=== PATIENT | female | born 1945 | race Caucasian/White ===

== ENCOUNTER 2017-08-03 20:55 | Emergency (ER) | payer MEDICARE, BC ==
[~2017-08-03] VITALS: Ht 170.2 cm; Wt 85.9 kg
[~2017-08-03 20:55] MED LIST: AMLO2.5T PO; ASPI-1009 PO; ATOR20TA PO; CITA10SO6 PO; CYAN500T46 PO; GLIP5POW PO; GUAI120L55 PO; HCTZ25T PO; IRON18TA PO; MELA5TAB12 PO; METF500T4 PO; POTA10TA19 PO; RAMI10CA44 PO; VITA-175 PO
[2017-08-03 23:26] VITALS: BP 112/68
== END 2017-08-03 23:29 | disposition home or self-care (01) ==
LOC: ER 20:56
DX: S06.0X0A Concussion without loss of consciousness, initial encounter (principal); S70.02XA Contusion of left hip, initial encounter; T14.8XXA Other injury of unspecified body region, initial encounter; I10 Essential (primary) hypertension; E11.9 Type 2 diabetes mellitus without complications; Z98.890 Other specified postprocedural states; Z60.2 Problems related to living alone; Z79.82 Long term (current) use of aspirin; Z79.84 Long term (current) use of oral hypoglycemic drugs; W01.0XXA Fall on same level from slipping, tripping and stumbling without subsequent striking against object, initial encounter; Y93.89 Activity, other specified; Y92.89 Other specified places as the place of occurrence of the external cause; Y99.8 Other external cause status
CPT/HCPCS: 73502; 99284

== ENCOUNTER 2018-01-18 06:59 | Emergency (ER) | payer MEDICARE, BC ==
[~2018-01-18] VITALS: Ht 167.6 cm; Wt 82.7 kg
[~2018-01-18 06:59] MED LIST changes: +METF-436 PO; -METF500T4 PO
[2018-01-18] MEDS ORDERED: HYDROcodone/acetaminophen 5mg/325mg tablet PO ONE (07:35)
[2018-01-18 09:03] VITALS: BP 128/56
[2018-01-18] MEDS ORDERED: ACET-3068 PO (10:08)
== END 2018-01-18 10:31 | disposition home or self-care (01) ==
LOC: ER 06:59
DX: S00.03XA Contusion of scalp, initial encounter (principal); S20.229A Contusion of unspecified back wall of thorax, initial encounter; S09.90XA Unspecified injury of head, initial encounter; I10 Essential (primary) hypertension; E11.9 Type 2 diabetes mellitus without complications; M19.90 Unspecified osteoarthritis, unspecified site; Z86.73 Personal history of transient ischemic attack (TIA), and cerebral infarction without residual deficits; Z90.49 Acquired absence of other specified parts of digestive tract; Z98.890 Other specified postprocedural states; Z87.891 Personal history of nicotine dependence; Z88.0 Allergy status to penicillin; Z79.82 Long term (current) use of aspirin; Z79.899 Other long term (current) drug therapy; W01.198A Fall on same level from slipping, tripping and stumbling with subsequent striking against other object, initial encounter; Y93.89 Activity, other specified; Y92.89 Other specified places as the place of occurrence of the external cause; Y99.9 Unspecified external cause status
CPT/HCPCS: 70450; 72074; 99284

== ENCOUNTER 2019-02-18 14:45 | Inpatient (IN) | payer MEDICARE, BC ==
[~2019-02-18] VITALS: Ht 167.6 cm; Wt 80.5 kg
[~2019-02-18 14:45] MED LIST changes: -AMLO2.5T PO; +AMLO2.5T4 PO
[2019-02-18] MEDS ORDERED: normal saline 1000ml 1,000 ML IV ONE (15:03)
[2019-02-18] MEDS ORDERED: morphine 2 MG/ML inj. syringe IV ONE (15:05)
[2019-02-18 16:02] LABS: BASOPHILS # (AUTO) 0.1 X10'3 (0-0.2); BASOPHILS % (AUTO) 0.7 % (0-1); EOSINOPHILS # (AUTO) 0.3 X10'3 (0-0.9); EOSINOPHILS % (AUTO) 3.6 % (0-6); HEMATOCRIT 38.7 % (35.0-45.0); HEMOGLOBIN 13.1 g/dl (12.0-16.0); LYMPHOCYTES # (AUTO) 1.5 X10'3 (1.1-4.8); LYMPHOCYTES % (AUTO) 19.6 % (21-51); MEAN CORPUSCULAR HEMOGLOBIN 32.8 PG (27.0-31.0); MEAN CORPUSCULAR HGB CONC 33.9 g/dL (33.0-36.5); MEAN CORPUSCULAR VOLUME 96.6 FL (78-98); MEAN PLATELET VOLUME 9.1 FL (7.4-10.4); MONOCYTES # (AUTO) 0.6 X10'3 (0-0.9); MONOCYTES % (AUTO) 7.5 % (2-12); NEUTROPHILS # (AUTO) 5.3 X10'3 (1.8-7.7); NEUTROPHILS % (AUTO) 68.6 % (42-75); PLATELET COUNT 221 X10'3 (140-440); RED CELL DISTRIBUTION WIDTH 13.6 % (11.5-14.5); WHITE BLOOD COUNT 7.7 X10'3 (4.5-11.0)
[2019-02-18 16:17] LABS: PARTIAL THROMBOPLASTIN TIME 25 SECONDS (22-32)
[2019-02-18 16:18] LABS: ALANINE AMINOTRANSFERASE 28 U/L (12-78); ALBUMIN 3.6 G/DL (3.4-5.0); ALBUMIN/GLOBULIN RATIO 0.9 (1.1-1.5); ALKALINE PHOSPHATASE 92 IU/L (46-116); ANION GAP 13 (8-16); ASPARTATE AMINO TRANSFERASE 21 U/L (10-37); BILIRUBIN,TOTAL 0.3 MG/DL (0.1-1.0); BLOOD UREA NITROGEN 24 MG/DL (7-18); BUN/CREATININE RATIO 26.1 (6.6-38.0); CALCIUM 9.5 MG/DL (8.5-10.1); CHLORIDE 106 MMOL/L (99-107); CREATININE 0.92 MG/DL (0.40-0.90); GLUCOSE 160 MG/DL (70-104); POTASSIUM 3.5 MMOL/L (3.5-5.1); SODIUM 144 MMOL/L (135-145); TOTAL CARBON DIOXIDE 24.7 MMOL/L (24-32); TOTAL PROTEIN 7.4 G/DL (6.4-8.2); eGFR 60 ML/MIN
[2019-02-18 16:22] LABS: CREATINE KINASE 59 U/L (26-192); TROPONIN I < 0.04 NG/ML (0.0-0.05)
[2019-02-18] MEDS ORDERED: magnesium 4gm in 100ml NS 100 ML IV PRN (17:10)
[2019-02-18] MEDS ORDERED: magnesium 2GM in 50ml NS 50 ML IV PRN (17:10)
[2019-02-18] MEDS ORDERED: HYDROcodone/acetaminophen 5mg/325mg tablet PO PRN (17:10)
[2019-02-18] MEDS ORDERED: potassium CL 10mEq/100ml bag 100 ML IV PRN ×2 (17:10)
[2019-02-18] MEDS ORDERED: magnesium Cl slow-release 64mg tablet PO PRN (17:10)
[2019-02-18] MEDS ORDERED: magnesium hydroxide 30ml (MOM) UD suspension PO PRN (17:10)
[2019-02-18] MEDS ORDERED: diphenhydrAMINE 25mg capsule PO PRN (17:10)
[2019-02-18] MEDS ORDERED: acetaminophen 325mg tablet PO PRN ×2 (17:10)
[2019-02-18] MEDS: K and/or MAG REPLACEMENT MC SCH (17:10)
[2019-02-18] MEDS ORDERED: mag hydrox/Alum hydrox/simeth 30ml oral suspension PO PRN (17:10)
[2019-02-18] MEDS ORDERED: morphine 2 MG/ML inj. syringe IV PRN (17:10)
[2019-02-18] MEDS ORDERED: bisacodyl 10mg suppository rectal RC PRN (17:10)
[2019-02-18] MEDS ORDERED: potassium Cl 20 mEq SR tablet PO PRN ×2 (17:10)
[2019-02-18] MEDS ORDERED: morphine 4 MG/ML inj SYRINge IV ONE ×2 (17:25→20:05)
[2019-02-18] MEDS: normal saline 1000ml 1,000 ML IV SCH (17:52)
[2019-02-18 18:02] LABS: CLARITY,URINE SLIGHTLY CLOUDY (Clear); COLOR,URINE YELLOW (Yellow); GLUCOSE, URINE NEGATIVE (Neg); KETONES,URINE NEGATIVE (Neg); LEUKOCYTE ESTERASE ,URINE NEGATIVE (Neg); NITRITES, URINE NEGATIVE (Neg); OCCULT BLOOD,URINE NEGATIVE (Neg); PROTEIN,URINE TRACE mg/dl (Neg); UROBILINOGEN,URINE 0.2 E.U/dL (0.2-1.0)
[2019-02-18 18:08] LABS: UA COLLECTION TYPE FOLEY CATH
[2019-02-18] MEDS ORDERED: FURO-150 PO (18:11)
[2019-02-18 18:13] LABS: BACTERIA,URINE 4+ /HPF (Neg); RBC,URINE 0-2 /HPF (0-2); SQUAMOUS EPITHELIAL CELL,UR NONE SEEN /LPF (FEW)
[2019-02-18] MEDS ORDERED: SENN-250 PO (18:14)
[2019-02-18] MEDS ORDERED: INSU300I SQ (18:14)
[2019-02-18] MEDS ORDERED: INSU100V11 SQ (18:14)
[2019-02-18] MEDS ORDERED: LOSA100T57 PO (18:23)
[2019-02-18 20:00] VITALS: BP 154/68
[2019-02-18] MEDS ORDERED: temazepam 15mg capsule PO PRN (21:00)
[2019-02-18] MEDS ORDERED: ringers solution, lacted 1,000 ML IV ONE (21:05)
[2019-02-18] MEDS ORDERED: CefTRIAXone 2gm/D5W 50ml 50 ML IV ONE (21:30)
[2019-02-18] MEDS: HYDROcodone/acetaminophen 10/325mg tab PO PRN (22:44)
--- NOTE | 2019-02-19 02:51 | NUR ---
Reviewed and agree with SRN assessment.
[2019-02-19] MEDS: HYDROcodone/acetaminophen 10/325mg tab PO PRN ×4 (03:35→16:27)
[2019-02-19] MEDS: normal saline 1000ml 1,000 ML IV SCH ×2 (03:36→16:28)
[2019-02-19] MEDS ORDERED: famotidine 20mg tablet PO ONE (06:00)
--- NOTE | 2019-02-19 06:08 | NUR ---
Problems reprioritized. Patient report given, questions answered & plan of care reviewed with MARIA DOLORES Walker.
[2019-02-19 06:10] VITALS: BP 170/68
--- NOTE | 2019-02-19 06:24 | NUR ---
I have received patient report from Caitlin Zhang and Sonia KOEHLER
[2019-02-19 06:26] LABS: BASOPHILS % (AUTO) 0.3 % (0-1); EOSINOPHILS # (AUTO) 0.3 X10'3 (0-0.9); HEMATOCRIT 35.2 % (35.0-45.0); HEMOGLOBIN 12.1 g/dl (12.0-16.0); LYMPHOCYTES # (AUTO) 1.3 X10'3 (1.1-4.8); MEAN CORPUSCULAR HEMOGLOBIN 33.4 PG (27.0-31.0); MEAN CORPUSCULAR HGB CONC 34.3 g/dL (33.0-36.5); MEAN CORPUSCULAR VOLUME 97.5 FL (78-98); MEAN PLATELET VOLUME 8.7 FL (7.4-10.4); MONOCYTES # (AUTO) 0.8 X10'3 (0-0.9); MONOCYTES % (AUTO) 7.6 % (2-12); NEUTROPHILS # (AUTO) 8.2 X10'3 (1.8-7.7); NEUTROPHILS % (AUTO) 77.1 % (42-75); PLATELET COUNT 185 X10'3 (140-440); RED BLOOD COUNT 3.61 X10'6 (4.20-5.60); RED CELL DISTRIBUTION WIDTH 13.3 % (11.5-14.5); WHITE BLOOD COUNT 10.7 X10'3 (4.5-11.0)
[2019-02-19 06:40] LABS: ALANINE AMINOTRANSFERASE 22 U/L (12-78); ALBUMIN 3.2 G/DL (3.4-5.0); ALBUMIN/GLOBULIN RATIO 0.9 (1.1-1.5); ALKALINE PHOSPHATASE 75 IU/L (46-116); ANION GAP 9 (8-16); ASPARTATE AMINO TRANSFERASE 21 U/L (10-37); BILIRUBIN,TOTAL 0.5 MG/DL (0.1-1.0); BLOOD UREA NITROGEN 20 MG/DL (7-18); BUN/CREATININE RATIO 26.7 (6.6-38.0); CALCIUM 8.4 MG/DL (8.5-10.1); CHLORIDE 107 MMOL/L (99-107); CHOL/HDL RATIO 2.6 (0.00-4.99); CHOLESTEROL 131 MG/DL (0-200); CREATININE 0.75 MG/DL (0.40-0.90); GLUCOSE 128 MG/DL (70-104); HDL CHOLESTEROL 50 MG/DL (35-60); LDL CHOLESTEROL 68 MG/DL (50-100); MAGNESIUM 1.2 MG/DL (1.5-2.4); PHOSPHORUS 2.9 MG/DL (2.3-4.5); POTASSIUM 3.2 MMOL/L (3.5-5.1); SODIUM 142 MMOL/L (135-145); TOTAL CARBON DIOXIDE 26.1 MMOL/L (24-32); TOTAL PROTEIN 6.6 G/DL (6.4-8.2); TRIGLYCERIDES 101 MG/DL (20-135); eGFR 76 ML/MIN
[2019-02-19] MEDS ORDERED: POTASSIUM BICARB 20meq eff tab 20 MEQ TABLET.EFF PO PRN (07:08)
[2019-02-19] MEDS: CefTRIAXone/D5W-Rocephin 1gm 50 ML IV SCH (07:38)
[2019-02-19] MEDS: K and/or MAG REPLACEMENT MC SCH (08:00)
[2019-02-19] MEDS: POTASSIUM BICARB 20meq eff tab 20 MEQ TABLET.EFF PO PRN ×3 (08:28→16:27)
[2019-02-19 10:00] VITALS: BP 145/56
[2019-02-19] MEDS ORDERED: sennosides/docusate sodium tablet PO PRN (10:55)
[2019-02-19] MEDS: citalopram 20mg tablet PO SCH (11:38)
[2019-02-19] MEDS: lactobacillus rhamnosus 10,000 MMU CELLS/CAPSULE PO SCH ×2 (11:38→20:47)
[2019-02-19] MEDS: losartan 50mg tablet PO SCH (11:39)
[2019-02-19] MEDS: vitamin B comp w/Vit. C tab 1 TAB TABLET PO SCH (11:39)
[2019-02-19] MEDS: heparin, porcine 5000 units/ml vial SQ SCH ×2 (11:57→20:48)
[2019-02-19 18:00] VITALS: BP 122/65
--- NOTE | 2019-02-19 18:00 | NUR ---
Patient in room ORTHO 4009. I have received report from MARIA DOLORES Walker and had the opportunity to ask questions and assume patient care.
--- NOTE | 2019-02-19 18:45 | NUR ---
Patient report given to Tonja WHITETN
[2019-02-19] MEDS: atorvastatin 20mg tablet PO SCH (20:48)
[2019-02-19] MEDS: Melatonin 3mg tablet PO SCH (20:48)
[2019-02-19] MEDS: morphine 2 MG/ML inj. syringe IV PRN (20:49)
[2019-02-19 22:00] VITALS: BP 175/67
[2019-02-20] VITALS (15 sets, daily range): BP systolic 133–189; BP diastolic 62–103
--- NOTE | 2019-02-20 02:54 | NUR ---
Pt is experiencing elevated BP, took it on bilateral upper extremities on the V/S machines, RN took BP manually twice: BP 210/105, 89, 2L on N/C. Called hospitalist, received orders
[2019-02-20] MEDS ORDERED: nitroGLYCERIN 1gm ointment UD TP ONE (02:55)
[2019-02-20] MEDS ORDERED: amLODIPine 5mg tablet PO ONE (02:55)
--- NOTE | 2019-02-20 03:47 | NUR ---
Patient is confused and wanting to talk to a doctor at this time, since she is not believing the nursing staff about what is going on regarding her hospital stay. I attempted to reach the log operations coordinator Hospitalist but he is unavailable to speak to the patient at this time. I did try to re orient patient regarding the hospital stay and what her plan of care was in regards to the planned surgery at 0730. She was unable to be re orientated at this time.
--- NOTE | 2019-02-20 05:21 | NUR ---
Patient pulled iv out and is still confused and angry; I attempted to call the pt's daughter listed as a bus person but both phone numbers did not work. So I called the next bus person, Jackie and left a message for her to call the hospital.
--- NOTE | 2019-02-20 06:00 | NUR ---
Problems reprioritized. Patient report given, questions answered & plan of care reviewed with MARIA DOLORES Hines.
--- NOTE | 2019-02-20 06:12 | NUR ---
RECIEVED REPORT FROM MARIA DOLORES MONTES
[2019-02-20] MEDS ORDERED: cefazolin/dext.iso 2gm/50ml 50 ML IV ONE (06:20)
[2019-02-20] MEDS ORDERED: tranexamic acid 100mg/ml inj. IV ONE (06:20)
[2019-02-20] MEDS ORDERED: tranexamic acid inj. 1,000 MG in normal saline 100ml IV soln 100 ML IV ONE (06:30)
[2019-02-20] MEDS ORDERED: vancomycin 1,000mg inj ONE (06:32)
[2019-02-20] MEDS: HYDROcodone/acetaminophen 10/325mg tab PO PRN ×3 (06:38→22:01)
[2019-02-20] MEDS: normal saline 1000ml 1,000 ML IV SCH ×4 (06:51→22:04)
[2019-02-20] MEDS: aspirin 81mg tablet.DR PO SCH (07:00)
[2019-02-20] MEDS: citalopram 20mg tablet PO SCH (07:00)
[2019-02-20] MEDS: heparin, porcine 5000 units/ml vial SQ SCH ×2 (07:00→20:37)
[2019-02-20] MEDS: losartan 50mg tablet PO SCH (07:00)
[2019-02-20] MEDS: K and/or MAG REPLACEMENT MC SCH (07:00)
[2019-02-20] MEDS: vitamin B comp w/Vit. C tab 1 TAB TABLET PO SCH (07:00)
[2019-02-20] MEDS: lactobacillus rhamnosus 10,000 MMU CELLS/CAPSULE PO SCH ×2 (07:00→20:37)
--- NOTE | 2019-02-20 07:00 | NUR ---
pt is being wheeled down to or now
[2019-02-20] MEDS ORDERED: sevoflurane 250ml liquid IH ONE (07:14)
[2019-02-20] MEDS ORDERED: propofol 10mg/ml 20ml vial IV ONE (07:14)
[2019-02-20] MEDS ORDERED: fentaNYL/PF 50MCG/1 ML 2ML syringe ONE ×2 (07:16→07:50)
[2019-02-20] MEDS ORDERED: midazolam 2 mg/2 ml injection ONE (07:17)
[2019-02-20] MEDS ORDERED: LIDOcaine 2% (20mg/ml) 5ml vial ONE (07:30)
[2019-02-20] MEDS ORDERED: dexamethasone sod phosphate 4mg/ml inj. ONE ×2 (07:37→07:38)
[2019-02-20] MEDS ORDERED: ondansetron/PF 4mg/2ml inj ONE (07:38)
[2019-02-20] MEDS ORDERED: ringers solution, lacted 1,000 ML IV SCH (07:56)
[2019-02-20] MEDS ORDERED: labetalol 20mg/4ml (5mg/ml) syringe IV PRN (08:00)
[2019-02-20] MEDS ORDERED: hydrALAZINE 20mg/ml inj. IV PRN (08:00)
[2019-02-20] MEDS ORDERED: fentaNYL/PF 50MCG/1 ML 2ML syringe IV PRN ×2 (08:00)
[2019-02-20] MEDS ORDERED: morphine 4 MG/ML inj SYRINge IV PRN ×2 (08:00)
[2019-02-20] MEDS ORDERED: ondansetron/PF 4mg/2ml inj IV PRN (08:00)
[2019-02-20] MEDS ORDERED: ePHEDrine 50MG/ML INJ. ONE (08:23)
--- NOTE | 2019-02-20 08:45 | NUR ---
Received from OR via ORTHO BED, accompanied by Anesthesiologist DR. FLOYD and report given by Anesthesiolgist. PT ARRIVED WITH O2 VIA MASK AT 10L. GROGGY BUT RESPONDS TO COMMANDS. [place]CKAY WITH [employer] CSM. PULSES AND [employer] POLICE OFFICER WNL. SHANIQUE DRESSING IN PLACE WITH HIP WRAP AND PWD PACK. SCD IN PLACE. FC WITH CLEAR YELLOW URINE NOTED
--- NOTE | 2019-02-20 09:12 | NUR ---
RECEIVED REPORT FROM MARIA DOLORES MARTINO IN [facility]
--- NOTE | 2019-02-20 09:35 | NUR ---
Report called to receiving nurse BECKY WHITTEN. Transferred via ORHTO BED TO ROOM 4009B. Belongings RING, TEETH, GLASSES AND CELLPHONE IN PTS CHART LEFT AT DESK. Special Issues communicated to receiving nurse. VSS ON 2L NC
[2019-02-20] MEDS: CefTRIAXone/D5W-Rocephin 1gm 50 ML IV SCH (09:50)
[2019-02-20 11:02] LABS: HEMOGLOBIN 11.3 g/dl (12.0-16.0); LYMPHOCYTES # (AUTO) 0.4 X10'3 (1.1-4.8); MEAN CORPUSCULAR HEMOGLOBIN 32.3 PG (27.0-31.0); RED BLOOD COUNT 3.51 X10'6 (4.20-5.60); RED CELL DISTRIBUTION WIDTH 13.4 % (11.5-14.5); WHITE BLOOD COUNT 12.8 X10'3 (4.5-11.0)
[2019-02-20 11:04] LABS: BASOPHILS % (AUTO) 0.3 % (0-1); EOSINOPHILS % (AUTO) 0.2 % (0-6); HEMATOCRIT 34.6 % (35.0-45.0); LYMPHOCYTES % (AUTO) 3.1 % (21-51); MEAN CORPUSCULAR HGB CONC 32.8 g/dL (33.0-36.5); MEAN CORPUSCULAR VOLUME 98.4 FL (78-98); MONOCYTES # (AUTO) 0.4 X10'3 (0-0.9); MONOCYTES % (AUTO) 3.2 % (2-12); NEUTROPHILS # (AUTO) 11.9 X10'3 (1.8-7.7); NEUTROPHILS % (AUTO) 93.2 % (42-75); PLATELET COUNT 184 X10'3 (140-440)
[2019-02-20 11:14] LABS: ALANINE AMINOTRANSFERASE 20 U/L (12-78); ALBUMIN 2.8 G/DL (3.4-5.0); ALBUMIN/GLOBULIN RATIO 0.8 (1.1-1.5); ALKALINE PHOSPHATASE 76 IU/L (46-116); ANION GAP 11 (8-16); ASPARTATE AMINO TRANSFERASE 26 U/L (10-37); BILIRUBIN,TOTAL 0.5 MG/DL (0.1-1.0); BLOOD UREA NITROGEN 19 MG/DL (7-18); BUN/CREATININE RATIO 23.2 (6.6-38.0); CALCIUM 7.6 MG/DL (8.5-10.1); CHLORIDE 105 MMOL/L (99-107); CREATININE 0.82 MG/DL (0.40-0.90); GLUCOSE 222 MG/DL (70-104); MAGNESIUM 2.1 MG/DL (1.5-2.4); PHOSPHORUS 2.8 MG/DL (2.3-4.5); POTASSIUM 3.7 MMOL/L (3.5-5.1); SODIUM 139 MMOL/L (135-145); TOTAL CARBON DIOXIDE 22.7 MMOL/L (24-32); TOTAL PROTEIN 6.4 G/DL (6.4-8.2); eGFR 68 ML/MIN
--- NOTE | 2019-02-20 11:16 | NUR ---
RECOVERY NURSE TOLD ME THAT THEY PLACED A HIP WRAP AND POWDER PACK ON PT AND THAT THE HIP WRAP AND POWDER PACK WAS NOT ORDERED BY DOC, CONTINUE TO MONITOR PT
[2019-02-20] MEDS: ondansetron/PF 4mg/2ml inj IV PRN (13:46)
[2019-02-20] MEDS: morphine 2 MG/ML inj. syringe IV PRN (13:53)
--- NOTE | 2019-02-20 14:00 | NUR ---
PT TELLS ME THAT FOR HER DM SHE TAKES PO MEDS AND IS DIET CONTROLLED, LOOKING A PT MED REC THE HOSPITALIST HELD HER BG MEDICATION, AND HER A1C IS 6.6 THEREFORE CONTINUE TO MONITOR PT BG AT THIS TIME
[2019-02-20] MEDS: cefazolin/dext.iso 2gm/50ml 50 ML IV SCH (15:38)
--- NOTE | 2019-02-20 16:00 | NUR ---
SENT A PAGE TO HOSPITALIST ABOUT PT ELEVATED BG, NO NEW ORDERS AT THIS TIME, CONTINUE TO MONITOR
[2019-02-20] MEDS ORDERED: glucagon, human recombinant 1mg kit SUBCUT PRN (17:35)
[2019-02-20] MEDS ORDERED: dextrose ORAL solution 15 GM/59 ML bottle PO PRN ×2 (17:35)
[2019-02-20] MEDS ORDERED: MESSAGE TO PHARMACY PO ONE (17:35)
[2019-02-20] MEDS ORDERED: dextrose 50%-water 50ml dispensing syringe IV PRN ×2 (17:35)
--- NOTE | 2019-02-20 17:38 | NUR ---
PT JUST PLACED ON HYPER/HYPOGLYCEMIC PROTOCAL FOR HER ELEVATED BG, PHARMACY WILL NEED TO SEND INSULIN UP TO FLOOR, CONTINUE TO MONITOR
--- NOTE | 2019-02-20 18:24 | NUR ---
GAVE REPORT TO MARIA DOLORES CASTREJON
[2019-02-20] MEDS: insulin Lispro (HumaLOG) vial - multi-dose SQ SCH ×2 (19:44→21:55)
[2019-02-20] MEDS: Melatonin 3mg tablet PO SCH (20:37)
[2019-02-20] MEDS: atorvastatin 20mg tablet PO SCH (20:37)
[2019-02-20] MEDS ORDERED: insulin glargine (Lantus) pen - multi-dose SQ SCH (21:00)
[2019-02-21] MEDS: ondansetron/PF 4mg/2ml inj IV PRN (00:44)
[2019-02-21] MEDS: cefazolin/dext.iso 2gm/50ml 50 ML IV SCH (00:54)
[2019-02-21 02:00] VITALS: BP 156/78
[2019-02-21] MEDS: HYDROcodone/acetaminophen 10/325mg tab PO PRN ×2 (04:07→08:18)
[2019-02-21 06:56] LABS: BASOPHILS % (AUTO) 0.1 % (0-1); EOSINOPHILS % (AUTO) 0.1 % (0-6); HEMATOCRIT 32.1 % (35.0-45.0); HEMOGLOBIN 10.8 g/dl (12.0-16.0); LYMPHOCYTES # (AUTO) 0.8 X10'3 (1.1-4.8); LYMPHOCYTES % (AUTO) 6.8 % (21-51); MEAN CORPUSCULAR HEMOGLOBIN 32.7 PG (27.0-31.0); MEAN CORPUSCULAR HGB CONC 33.6 g/dL (33.0-36.5); MEAN CORPUSCULAR VOLUME 97.3 FL (78-98); MEAN PLATELET VOLUME 8.9 FL (7.4-10.4); MONOCYTES # (AUTO) 0.9 X10'3 (0-0.9); MONOCYTES % (AUTO) 7.9 % (2-12); NEUTROPHILS # (AUTO) 9.9 X10'3 (1.8-7.7); NEUTROPHILS % (AUTO) 85.1 % (42-75); PLATELET COUNT 195 X10'3 (140-440); RED CELL DISTRIBUTION WIDTH 13.3 % (11.5-14.5); WHITE BLOOD COUNT 11.6 X10'3 (4.5-11.0)
[2019-02-21 07:05] VITALS: BP 143/71
[2019-02-21 07:07] LABS: ALANINE AMINOTRANSFERASE 19 U/L (12-78); ALBUMIN 2.8 G/DL (3.4-5.0); ALBUMIN/GLOBULIN RATIO 0.7 (1.1-1.5); ALKALINE PHOSPHATASE 78 IU/L (46-116); ANION GAP 10 (8-16); ASPARTATE AMINO TRANSFERASE 25 U/L (10-37); BILIRUBIN,TOTAL 0.4 MG/DL (0.1-1.0); BLOOD UREA NITROGEN 15 MG/DL (7-18); BUN/CREATININE RATIO 15.3 (6.6-38.0); CALCIUM 8.6 MG/DL (8.5-10.1); CHLORIDE 107 MMOL/L (99-107); CREATININE 0.98 MG/DL (0.40-0.90); GLUCOSE 215 MG/DL (70-104); MAGNESIUM 2.4 MG/DL (1.5-2.4); PHOSPHORUS 1.7 MG/DL (2.3-4.5); POTASSIUM 3.7 MMOL/L (3.5-5.1); SODIUM 141 MMOL/L (135-145); TOTAL CARBON DIOXIDE 24.1 MMOL/L (24-32); TOTAL PROTEIN 6.8 G/DL (6.4-8.2); eGFR 55 ML/MIN
[2019-02-21] MEDS ORDERED: furosemide 20MG tablet PO SCH (08:00)
[2019-02-21] MEDS: K and/or MAG REPLACEMENT MC SCH (08:00)
[2019-02-21] MEDS: losartan 50mg tablet PO SCH (08:15)
[2019-02-21] MEDS: CefTRIAXone/D5W-Rocephin 1gm 50 ML IV SCH (08:15)
[2019-02-21] MEDS: heparin, porcine 5000 units/ml vial SQ SCH (08:15)
[2019-02-21] MEDS: citalopram 20mg tablet PO SCH (08:15)
[2019-02-21] MEDS: aspirin 81mg tablet.DR PO SCH (08:15)
[2019-02-21] MEDS: lactobacillus rhamnosus 10,000 MMU CELLS/CAPSULE PO SCH (08:15)
[2019-02-21] MEDS: vitamin B comp w/Vit. C tab 1 TAB TABLET PO SCH (08:15)
[2019-02-21 10:57] VITALS: BP 146/55
[2019-02-21] MEDS: normal saline 1000ml 1,000 ML IV SCH (14:53)
== END 2019-02-21 15:40 | DRG 470 ==
LOC: ER 14:46 → ED HOLD 17:06 → ORTHO 4S 19:47
PROVIDERS: ADMIT Family Medicine; ATTEND Family Medicine
PROC: 0SRS019 Replacement of Left Hip Joint, Femoral Surface with Metal Synthetic Substitute, Cemented, Open Approach (ICD-10-PCS; principal; 2019-02-18)
DX: S72.012A Unspecified intracapsular fracture of left femur, initial encounter for closed fracture (principal); N30.00 Acute cystitis without hematuria; E11.9 Type 2 diabetes mellitus without complications; E78.5 Hyperlipidemia, unspecified; I10 Essential (primary) hypertension; E87.6 Hypokalemia; W18.39XA Other fall on same level, initial encounter; Z66 Do not resuscitate; Z90.49 Acquired absence of other specified parts of digestive tract; Z87.891 Personal history of nicotine dependence; Z86.73 Personal history of transient ischemic attack (TIA), and cerebral infarction without residual deficits; Z83.3 Family history of diabetes mellitus; Z79.82 Long term (current) use of aspirin; Z17.1 Estrogen receptor negative status [ER-]; Y93.89 Activity, other specified; Y92.89 Other specified places as the place of occurrence of the external cause; Y99.8 Other external cause status; Z79.899 Other long term (current) drug therapy
CPT/HCPCS: 36415; 71045; 72170; 73502; 80053; 80061; 81001; 82550; 82948; 83036; 83735; 84100; 84484; 85025; 85610; 85730; 86885; 86900; 86901; 87077; 87081; 87088; 87186; 93005; 93306; 96361; 96374; 97116; 97162; 97530; 99285; A4618; A6454; A7000; A9272; C1713; C1776; G0378; J0696; J1100; J1644; J1815; J2001; J2250; J2270; J2405; J2704; J3010; J3370; J3475; J7030; J7120

== ENCOUNTER 2019-06-28 13:56 | Emergency (ER) | payer MEDICARE, BC ==
[~2019-06-28 13:56] MED LIST changes: -AMLO2.5T4 PO; -CYAN500T46 PO; +FURO-150 PO; -GLIP5POW PO; -GUAI120L55 PO; -HCTZ25T PO; +INSU100V11 SQ; +INSU300I SQ; -IRON18TA PO; +LOSA100T57 PO; -RAMI10CA44 PO; +SENN-250 PO
[2019-06-28 13:58] VITALS: BP 184/80
[2019-06-28] MEDS ORDERED: ONDA4TAB6 PO (14:50)
[2019-06-28] MEDS ORDERED: HYDR-3965 PO (14:50)
[2019-06-28] MEDS ORDERED: HYDROcodone/acetaminophen 10/325mg tab PO ONE (15:10)
[2019-06-28] MEDS ORDERED: ondansetron 4mg rapidly disintigrating tab PO ONE (15:10)
== END 2019-06-28 15:29 | disposition home or self-care (01) ==
LOC: ER 13:56
DX: S32.89XA Fracture of other parts of pelvis, initial encounter for closed fracture (principal); I10 Essential (primary) hypertension; E11.9 Type 2 diabetes mellitus without complications; F32.9 Major depressive disorder, single episode, unspecified; M25.552 Pain in left hip; M19.90 Unspecified osteoarthritis, unspecified site; Z90.49 Acquired absence of other specified parts of digestive tract; Z98.890 Other specified postprocedural states; Z60.2 Problems related to living alone; Z88.0 Allergy status to penicillin; Z88.8 Allergy status to other drugs, medicaments and biological substances; Z86.73 Personal history of transient ischemic attack (TIA), and cerebral infarction without residual deficits; Z79.4 Long term (current) use of insulin; Z79.82 Long term (current) use of aspirin; Z79.899 Other long term (current) drug therapy; W18.30XA Fall on same level, unspecified, initial encounter; Y93.01 Activity, walking, marching and hiking; Y92.89 Other specified places as the place of occurrence of the external cause; Y99.8 Other external cause status
CPT/HCPCS: 72170; 73502; 99284

== ENCOUNTER 2019-07-03 12:50 | Emergency (ER) | payer MEDICARE, BC ==
[~2019-07-03] VITALS: Ht 167.6 cm; Wt 82.3 kg
[~2019-07-03 12:50] MED LIST changes: +HYDR-3965 PO; +ONDA4TAB6 PO
[2019-07-03] MEDS ORDERED: HYDROcodone/acetaminophen 10/325mg tab PO ONE (13:45)
[2019-07-03] MEDS ORDERED: HYDR-4353 PO (15:12)
[2019-07-03] MEDS ORDERED: POLY17PO10 PO (15:12)
[2019-07-03] MEDS ORDERED: DOCU100C40 PO (15:12)
[2019-07-03 15:34] VITALS: BP 194/72
== END 2019-07-03 15:25 | disposition home or self-care (01) ==
LOC: ER 12:50
DX: S32.89XD Fracture of other parts of pelvis, subsequent encounter for fracture with routine healing (principal); I10 Essential (primary) hypertension; E11.9 Type 2 diabetes mellitus without complications; M19.90 Unspecified osteoarthritis, unspecified site; Z90.49 Acquired absence of other specified parts of digestive tract; Z98.890 Other specified postprocedural states; Z86.73 Personal history of transient ischemic attack (TIA), and cerebral infarction without residual deficits; Z88.0 Allergy status to penicillin; Z79.82 Long term (current) use of aspirin; Z79.899 Other long term (current) drug therapy; Z79.4 Long term (current) use of insulin; W18.30XD Fall on same level, unspecified, subsequent encounter
CPT/HCPCS: 99284

== ENCOUNTER 2019-07-05 14:38 | Emergency (ER) | payer MEDICARE, BC ==
[~2019-07-05] VITALS: Ht 167.6 cm; Wt 73.2 kg
[~2019-07-05 14:38] MED LIST changes: +DOCU100C40 PO; +HYDR-4353 PO; +POLY17PO10 PO
--- NOTE | 2019-07-05 15:31 | NUR ---
FAMILY AND FRIENDS AT BEDSIDE VISITING. PT IN [employer]
[2019-07-05] MEDS ORDERED: docusate sod 100mg capsule PO STA (15:39)
[2019-07-05] MEDS ORDERED: polyethylene glycol 3350 17gm powd pack PO STA (15:39)
[2019-07-05 16:15] VITALS: BP 173/103
--- NOTE | 2019-07-05 16:45 | NUR ---
Sugar and Backing Soda enema given as ordered. Pt tolerated well. Pt had a large amount of immediate return of liquid with brown tinge. Pt reports she is attempting to hold it in as long as possible. CARMELINA Preston aware.
--- NOTE | 2019-07-05 16:46 | NUR ---
Pt noted to have significant amount of ecchymosis on the left buttock, perineal area and posterior aspect of the left elbow from her fall on 06/30/19
[2019-07-05] MEDS ORDERED: GLYC-23 RC (17:29)
== END 2019-07-05 18:21 | disposition home or self-care (01) ==
LOC: ER 14:39
DX: K59.00 Constipation, unspecified (principal); R14.0 Abdominal distension (gaseous); I10 Essential (primary) hypertension; E11.9 Type 2 diabetes mellitus without complications; F32.9 Major depressive disorder, single episode, unspecified; Z86.73 Personal history of transient ischemic attack (TIA), and cerebral infarction without residual deficits; Z90.49 Acquired absence of other specified parts of digestive tract; Z98.890 Other specified postprocedural states; Z60.2 Problems related to living alone; Z79.82 Long term (current) use of aspirin; Z79.4 Long term (current) use of insulin; Z79.899 Other long term (current) drug therapy
CPT/HCPCS: 99284

== ENCOUNTER 2019-07-10 14:17 | Emergency (ER) | payer MEDICARE, BC ==
[~2019-07-10] VITALS: Ht 167.6 cm; Wt 72.7 kg
[~2019-07-10 14:17] MED LIST changes: +GLYC-23 RC; -POLY17PO10 PO
[2019-07-10] MEDS ORDERED: normal saline 1000ml 1,000 ML IV ONE (14:39)
[2019-07-10] MEDS ORDERED: normal saline 1000ML IV soln IVB ONE (14:40)
[2019-07-10 15:02] LABS: BASOPHILS # (AUTO) 0.1 X10'3 (0-0.2); BASOPHILS % (AUTO) 0.5 % (0-1); EOSINOPHILS # (AUTO) 0.2 X10'3 (0-0.9); EOSINOPHILS % (AUTO) 1.5 % (0-6); HEMATOCRIT 32.3 % (35.0-45.0); HEMOGLOBIN 11.1 g/dl (12.0-16.0); LYMPHOCYTES % (AUTO) 9.3 % (21-51); MEAN CORPUSCULAR HEMOGLOBIN 33.9 PG (27.0-31.0); MEAN CORPUSCULAR HGB CONC 34.2 g/dL (33.0-36.5); MEAN CORPUSCULAR VOLUME 99.1 FL (78-98); MEAN PLATELET VOLUME 7.6 FL (7.4-10.4); MONOCYTES # (AUTO) 0.6 X10'3 (0-0.9); MONOCYTES % (AUTO) 5.9 % (2-12); NEUTROPHILS # (AUTO) 8.8 X10'3 (1.8-7.7); NEUTROPHILS % (AUTO) 82.8 % (42-75); PLATELET COUNT 483 X10'3 (140-440); RED BLOOD COUNT 3.26 X10'6 (4.20-5.60); RED CELL DISTRIBUTION WIDTH 14.4 % (11.5-14.5); WHITE BLOOD COUNT 10.6 X10'3 (4.5-11.0)
[2019-07-10 15:16] LABS: ALANINE AMINOTRANSFERASE 30 U/L (12-78); ALBUMIN 3.4 G/DL (3.4-5.0); ALBUMIN/GLOBULIN RATIO 0.9 (1.1-1.5); ALKALINE PHOSPHATASE 177 IU/L (46-116); ANION GAP 16 (8-16); ASPARTATE AMINO TRANSFERASE 32 U/L (10-37); BILIRUBIN,TOTAL 0.7 MG/DL (0.1-1.0); BLOOD UREA NITROGEN 23 MG/DL (7-18); BUN/CREATININE RATIO 27.7 (6.6-38.0); CHLORIDE 106 MMOL/L (99-107); CREATININE 0.83 MG/DL (0.40-0.90); GLUCOSE 123 MG/DL (70-104); POTASSIUM 3.5 MMOL/L (3.5-5.1); SODIUM 142 MMOL/L (135-145); TOTAL CARBON DIOXIDE 19.8 MMOL/L (24-32); eGFR 67 ML/MIN
[2019-07-10] MEDS ORDERED: DIPH-186 PO (15:35)
[2019-07-10] MEDS ORDERED: diphenoxylate/atropine tablet (Lomotil) PO ONE (15:35)
[2019-07-10 15:42] VITALS: BP 178/69
[2019-07-10 15:57] LABS: CLARITY,URINE CLOUDY (Clear); COLOR,URINE YELLOW (Yellow); GLUCOSE, URINE NEGATIVE (Neg); KETONES,URINE 40 mg/dl (Neg); LEUKOCYTE ESTERASE ,URINE NEGATIVE (Neg); NITRITES, URINE POSITIVE (Neg); OCCULT BLOOD,URINE NEGATIVE (Neg); PH,URINE 5.5 (4.8-8.0); PROTEIN,URINE 30 mg/dl (Neg); UROBILINOGEN,URINE 0.2 E.U/dL (0.2-1.0)
[2019-07-10 15:58] LABS: UA COLLECTION TYPE FOLEY CATH
[2019-07-10 16:03] LABS: BACTERIA,URINE 4+ /HPF (Neg); MUCUS STRANDS NONE SEEN /LPF (Neg); RBC,URINE 0-2 /HPF (0-2); SQUAMOUS EPITHELIAL CELL,UR NONE SEEN /LPF (FEW); WBC,URINE 0-4 /HPF (0-4)
== END 2019-07-10 16:22 | disposition home or self-care (01) ==
LOC: ER 14:17
DX: R19.7 Diarrhea, unspecified (principal); I10 Essential (primary) hypertension; E11.9 Type 2 diabetes mellitus without complications; M19.90 Unspecified osteoarthritis, unspecified site; Z86.73 Personal history of transient ischemic attack (TIA), and cerebral infarction without residual deficits; Z90.49 Acquired absence of other specified parts of digestive tract; Z98.890 Other specified postprocedural states; Z88.0 Allergy status to penicillin; Z79.82 Long term (current) use of aspirin; Z79.899 Other long term (current) drug therapy; Z79.4 Long term (current) use of insulin
CPT/HCPCS: 36415; 80053; 81001; 85025; 87077; 87088; 87186; 99284; J7030

== ENCOUNTER 2019-09-01 09:49 | Emergency (ER) | payer MEDICARE, BC ==
[~2019-09-01] VITALS: Ht 167.6 cm; Wt 61.4 kg
[~2019-09-01 09:49] MED LIST changes: +DIPH-186 PO; -HYDR-3965 PO; -HYDR-4353 PO
[2019-09-01 11:40] VITALS: BP 178/82
== END 2019-09-01 12:04 | disposition home or self-care (01) ==
LOC: ER 09:49
DX: S00.03XA Contusion of scalp, initial encounter (principal); I10 Essential (primary) hypertension; E11.9 Type 2 diabetes mellitus without complications; F32.9 Major depressive disorder, single episode, unspecified; Z90.49 Acquired absence of other specified parts of digestive tract; Z98.890 Other specified postprocedural states; Z60.2 Problems related to living alone; Z88.0 Allergy status to penicillin; Z79.82 Long term (current) use of aspirin; Z79.4 Long term (current) use of insulin; Z79.899 Other long term (current) drug therapy; W18.39XA Other fall on same level, initial encounter; Y93.01 Activity, walking, marching and hiking; Y92.512 Supermarket, store or market as the place of occurrence of the external cause; Y99.8 Other external cause status
CPT/HCPCS: 70450; 93005; 99284

== ENCOUNTER 2020-06-21 10:46 | Emergency (ER) | payer MEDICARE, BC ==
[~2020-06-21] VITALS: Ht 167.6 cm; Wt 75.0 kg
[2020-06-21 13:00] LABS: BASOPHILS % (AUTO) 0.4 % (0-1); EOSINOPHILS # (AUTO) 0.2 X10'3 (0-0.9); EOSINOPHILS % (AUTO) 1.5 % (0-6); HEMATOCRIT 37.4 % (35.0-45.0); HEMOGLOBIN 12.4 g/dl (12.0-16.0); LYMPHOCYTES # (AUTO) 1.3 X10'3 (1.1-4.8); LYMPHOCYTES % (AUTO) 12.7 % (21-51); MEAN CORPUSCULAR HEMOGLOBIN 31.7 PG (27.0-31.0); MEAN CORPUSCULAR HGB CONC 33.1 g/dL (33.0-36.5); MEAN CORPUSCULAR VOLUME 95.6 FL (78-98); MEAN PLATELET VOLUME 8.6 FL (7.4-10.4); MONOCYTES # (AUTO) 0.8 X10'3 (0-0.9); MONOCYTES % (AUTO) 7.8 % (2-12); NEUTROPHILS % (AUTO) 77.6 % (42-75); PLATELET COUNT 221 X10'3 (140-440); RED BLOOD COUNT 3.91 X10'6 (4.20-5.60); RED CELL DISTRIBUTION WIDTH 13.3 % (11.5-14.5); WHITE BLOOD COUNT 10.3 X10'3 (4.5-11.0)
[2020-06-21 13:13] LABS: ALANINE AMINOTRANSFERASE 16 U/L (12-78); ALBUMIN 3.4 G/DL (3.4-5.0); ALBUMIN/GLOBULIN RATIO 0.9 (1.1-1.5); ALKALINE PHOSPHATASE 94 IU/L (46-116); ANION GAP 8 (8-16); ASPARTATE AMINO TRANSFERASE 15 U/L (10-37); BILIRUBIN,TOTAL 0.6 MG/DL (0.1-1.0); BLOOD UREA NITROGEN 16 MG/DL (7-18); BUN/CREATININE RATIO 19.8 (6.6-38.0); CALCIUM 8.8 MG/DL (8.5-10.1); CHLORIDE 107 MMOL/L (99-107); CREATININE 0.81 MG/DL (0.40-0.90); GLUCOSE 156 MG/DL (70-104); SODIUM 142 MMOL/L (135-145); TOTAL CARBON DIOXIDE 27.4 MMOL/L (24-32); eGFR 69 ML/MIN
[2020-06-21] MEDS ORDERED: iohexol 300mg/ml 100ml inj. ONE (13:24)
[2020-06-21 13:29] VITALS: BP 177/73
[2020-06-21] MEDS ORDERED: MESSAGE TO NURSING PO SCH (14:00)
[2020-06-21] MEDS ORDERED: potassium Cl 20 mEq SR tablet PO STA (14:14)
[2020-06-21] MEDS ORDERED: magnesium oxide 400mg tablet PO ONE (14:15)
[2020-06-21] MEDS ORDERED: POTA20TA19 PO (14:15)
[2020-06-21] MEDS ORDERED: CEPH500C5 PO (14:34)
== END 2020-06-21 15:34 | disposition home or self-care (01) ==
LOC: ER 10:47
DX: E87.6 Hypokalemia (principal); E04.1 Nontoxic single thyroid nodule; K11.20 Sialoadenitis, unspecified; K08.89 Other specified disorders of teeth and supporting structures; I10 Essential (primary) hypertension; E11.9 Type 2 diabetes mellitus without complications; F32.9 Major depressive disorder, single episode, unspecified; Z86.73 Personal history of transient ischemic attack (TIA), and cerebral infarction without residual deficits; Z90.89 Acquired absence of other organs; Z98.890 Other specified postprocedural states; Z87.01 Personal history of pneumonia (recurrent); Z60.2 Problems related to living alone; Z88.0 Allergy status to penicillin; Z79.82 Long term (current) use of aspirin; Z79.4 Long term (current) use of insulin; Z79.899 Other long term (current) drug therapy
CPT/HCPCS: 36415; 70491; 80053; 84145; 85025; 99285; Q9967

== ENCOUNTER 2021-05-31 10:51 | Emergency (ER) | payer MEDICARE, BC ==
[~2021-05-31] VITALS: Ht 182.9 cm; Wt 65.9 kg
[~2021-05-31 10:51] MED LIST changes: +AMLO5TAB16 PO; -ASPI-1009 PO; -ATOR20TA PO; +ATOR40TA72 PO; -CITA10SO6 PO; -DIPH-186 PO; -DOCU100C40 PO; -FURO-150 PO; -GLYC-23 RC; -INSU100V11 SQ; -MELA5TAB12 PO; -METF-436 PO; +METF-438 PO; -ONDA4TAB6 PO; -POTA10TA19 PO; -SENN-250 PO; -VITA-175 PO
[2021-05-31] MEDS ORDERED: normal saline 1000ML IV soln IV ONE (11:05)
[2021-05-31 11:54] LABS: BASOPHILS % (AUTO) 0.4 % (0-1); EOSINOPHILS # (AUTO) 0.1 X10'3 (0-0.9); HEMOGLOBIN 11.8 g/dl (12.0-16.0); MEAN CORPUSCULAR VOLUME 94.9 FL (78-98); MONOCYTES # (AUTO) 0.6 X10'3 (0-0.9); PLATELET COUNT 287 X10'3 (140-440)
[2021-05-31 11:57] LABS: EOSINOPHILS % (AUTO) 0.9 % (0-6); HEMATOCRIT 35.2 % (35.0-45.0); LYMPHOCYTES # (AUTO) 1.3 X10'3 (1.1-4.8); LYMPHOCYTES % (AUTO) 14.2 % (21-51); MEAN CORPUSCULAR HEMOGLOBIN 31.8 PG (27.0-31.0); MEAN CORPUSCULAR HGB CONC 33.5 g/dL (33.0-36.5); MONOCYTES % (AUTO) 7.2 % (2-12); NEUTROPHILS # (AUTO) 6.9 X10'3 (1.8-7.7); NEUTROPHILS % (AUTO) 77.3 % (42-75); RED CELL DISTRIBUTION WIDTH 14.8 % (11.5-14.5); WHITE BLOOD COUNT 8.9 X10'3 (4.5-11.0)
[2021-05-31 12:05] LABS: CLARITY,URINE CLOUDY (Clear); COLOR,URINE YELLOW (Yellow); GLUCOSE, URINE NEGATIVE (Neg); KETONES,URINE 15 mg/dl (Neg); LEUKOCYTE ESTERASE ,URINE SMALL (Neg); NITRITES, URINE NEGATIVE (Neg); OCCULT BLOOD,URINE SMALL (Neg); PH,URINE 5.5 (4.8-8.0); PROTEIN,URINE NEGATIVE (Neg); UROBILINOGEN,URINE 0.2 E.U/dL (0.2-1.0)
[2021-05-31 12:12] LABS: UA COLLECTION TYPE STRAIGHT CATH
[2021-05-31 12:13] LABS: BACTERIA,URINE 3+ /HPF (Neg); SQUAMOUS EPITHELIAL CELL,UR MODERATE /LPF (FEW); YEAST FEW /HPF (NEGATIVE)
[2021-05-31 12:13] LABS: ALANINE AMINOTRANSFERASE 13 U/L (12-78); ALBUMIN/GLOBULIN RATIO 0.8 (1.1-1.5); ALKALINE PHOSPHATASE 142 IU/L (46-116); ANION GAP 12 (8-16); ASPARTATE AMINO TRANSFERASE 25 U/L (10-37); BILIRUBIN,TOTAL 0.4 MG/DL (0.1-1.0); BLOOD UREA NITROGEN 23 MG/DL (7-18); BUN/CREATININE RATIO 23.5 (6.6-38.0); CHLORIDE 105 MMOL/L (99-107); CREATININE 0.98 MG/DL (0.40-0.90); GLUCOSE 163 MG/DL (70-104); POTASSIUM 3.7 MMOL/L (3.5-5.1); SODIUM 141 MMOL/L (135-145); TOTAL CARBON DIOXIDE 23.9 MMOL/L (24-32); eGFR 55 ML/MIN
[2021-05-31 12:14] LABS: WBC,URINE TNTC /HPF (0-4)
[2021-05-31] MEDS ORDERED: morphine 4 MG/ML inj SYRINge IV ONE (12:15)
[2021-05-31] MEDS ORDERED: CefTRIAXone 2gm/D5W 50ml BAG 50 ML IV ONE (12:40)
[2021-05-31] MEDS ORDERED: CEPH250T PO (12:41)
[2021-05-31 14:55] VITALS: BP 185/99
--- NOTE | 2021-05-31 15:13 | NUR ---
Report called to Marquis Woodruff at [facility]; given to MARIA DOLORES Bañuelos.
== END 2021-05-31 15:00 ==
LOC: ER 10:52
DX: N39.0 Urinary tract infection, site not specified (principal); G93.41 Metabolic encephalopathy; R41.0 Disorientation, unspecified; I10 Essential (primary) hypertension; F32.9 Major depressive disorder, single episode, unspecified; E11.9 Type 2 diabetes mellitus without complications; Z86.73 Personal history of transient ischemic attack (TIA), and cerebral infarction without residual deficits; Z87.440 Personal history of urinary (tract) infections; Z90.89 Acquired absence of other organs; Z98.890 Other specified postprocedural states; Z60.2 Problems related to living alone; Z88.0 Allergy status to penicillin; Z79.2 Long term (current) use of antibiotics; Z79.4 Long term (current) use of insulin; Z79.899 Other long term (current) drug therapy
CPT/HCPCS: 36415; 71045; 80053; 81001; 83605; 84145; 85025; 87040; 87088; 96361; 96365; 96375; 99284; J0696; J2270; J7030

== ENCOUNTER 2021-08-09 04:53 | Emergency (ER) | payer MEDICARE, BC ==
[~2021-08-09] VITALS: Ht 170.2 cm; Wt 70.0 kg
[2021-08-09] MEDS ORDERED: carVEDilol 3.125mg tablet PO SCH (05:00)
[2021-08-09] MEDS ORDERED: carVEDilol 3.125mg tablet PO ONE (05:00)
[2021-08-09 05:56] LABS: BASOPHILS # (AUTO) 0.1 X10'3 (0-0.2); BASOPHILS % (AUTO) 0.8 % (0-1); EOSINOPHILS # (AUTO) 0.2 X10'3 (0-0.9); EOSINOPHILS % (AUTO) 1.9 % (0-6); HEMATOCRIT 35.5 % (35.0-45.0); HEMOGLOBIN 11.7 g/dl (12.0-16.0); LYMPHOCYTES # (AUTO) 2.5 X10'3 (1.1-4.8); LYMPHOCYTES % (AUTO) 28.8 % (21-51); MEAN CORPUSCULAR HGB CONC 33.1 g/dL (33.0-36.5); MEAN CORPUSCULAR VOLUME 96.6 FL (78-98); MEAN PLATELET VOLUME 9.5 FL (7.4-10.4); MONOCYTES # (AUTO) 0.7 X10'3 (0-0.9); MONOCYTES % (AUTO) 8.2 % (2-12); NEUTROPHILS # (AUTO) 5.2 X10'3 (1.8-7.7); NEUTROPHILS % (AUTO) 60.3 % (42-75); PLATELET COUNT 312 X10'3 (140-440); RED BLOOD COUNT 3.67 X10'6 (4.20-5.60); RED CELL DISTRIBUTION WIDTH 15.3 % (11.5-14.5); WHITE BLOOD COUNT 8.6 X10'3 (4.5-11.0)
[2021-08-09 05:57] LABS: APTT 29 SECONDS (22-32)
[2021-08-09 06:02] LABS: ALANINE AMINOTRANSFERASE 11 U/L (12-78); ALBUMIN 2.6 G/DL (3.4-5.0); ALBUMIN/GLOBULIN RATIO 0.7 (1.1-1.5); ALKALINE PHOSPHATASE 108 IU/L (46-116); ANION GAP 14 (8-16); ASPARTATE AMINO TRANSFERASE 15 U/L (10-37); BILIRUBIN,TOTAL 0.4 MG/DL (0.1-1.0); BLOOD UREA NITROGEN 28 MG/DL (7-18); BUN/CREATININE RATIO 24.8 (6.6-38.0); CALCIUM 9.2 MG/DL (8.5-10.1); CHLORIDE 107 MMOL/L (99-107); CREATININE 1.13 MG/DL (0.40-0.90); GLUCOSE 114 MG/DL (70-104); POTASSIUM 3.2 MMOL/L (3.5-5.1); SODIUM 144 MMOL/L (135-145); TOTAL CARBON DIOXIDE 23.2 MMOL/L (24-32); TOTAL PROTEIN 6.5 G/DL (6.4-8.2); eGFR 47 ML/MIN
[2021-08-09 06:10] LABS: ETHANOL < 0.010 GM/DL (0.0-0.010); MAGNESIUM 1.2 MG/DL (1.5-2.4)
--- NOTE | 2021-08-09 07:06 | NUR ---
PT. REFUSING BP CUFF.
--- NOTE | 2021-08-09 07:12 | NUR ---
PT. REFUSES TO BE TOUCHED FOR GENERAL ASSESSMENT. PER DR. COLEMAN, URINE SAMPLE DOES NOT TO BE OBTAINED AT THIS TIME.
[2021-08-09] MEDS ORDERED: normal saline 1000ML IV soln IVB ONE (07:15)
--- NOTE | 2021-08-09 10:05 | NUR ---
d/c IV, took vitals, awaiting transport. pt. is relaxed, but confused.
[2021-08-09 11:07] VITALS: BP 119/81
== END 2021-08-09 11:12 | disposition home or self-care (01) ==
LOC: ER 04:53
DX: R00.0 Tachycardia, unspecified (principal); F03.91 Unspecified dementia, unspecified severity, with behavioral disturbance; E86.0 Dehydration; I11.0 Hypertensive heart disease with heart failure; F32.9 Major depressive disorder, single episode, unspecified; Z88.0 Allergy status to penicillin
CPT/HCPCS: 36415; 71045; 80053; 80320; 83735; 83880; 84484; 85025; 85610; 85730; 93005; 96360; 99285; J7030; 96361